=== PATIENT | female | born 1985 | race Caucasian/White ===

== ENCOUNTER → 2016-12-26 | Outpatient (CLI) | payer BC ==
[~2016-12-26] MED LIST: BCP; DXY100 PO
[2016-12-26 13:16] LABS: URINE APPEARANCE CLEAR (CLEAR); URINE BILIRUBIN NEG (NEG); URINE COLOR YELLOW; URINE NITRITE NEG (NEG); URINE PH 7.5 (4.5-7.5); URINE SPECIFIC GRAVITY 1.023 (1.000-1.030); UROBILINOGEN NEG (NEG)
[2016-12-26 13:33] LABS: MANUAL MICROSCOPIC REQUIRED? NO; REVIEW REQ? NO
== END | disposition home or self-care (01) ==
LOC: C.LABSPEC 11:08
PROVIDERS: ATTEND Obstetrics & Gynecology
DX: Z34.90 Encounter for supervision of normal pregnancy, unspecified, unspecified trimester (principal)

== ENCOUNTER → 2017-01-01 | Outpatient (CLI) | payer BC ==
[2017-01-02 15:38] LABS: CHLAMYDIA TRACH RNA*** NOT DETECTED (NOT DETECTED); GC (NEIS GONORRHOEAE)RNA** NOT DETECTED (NOT DETECTED)
== END | disposition home or self-care (01) ==
LOC: C.LABSPEC 11:18
PROVIDERS: ATTEND Obstetrics & Gynecology
DX: Z34.90 Encounter for supervision of normal pregnancy, unspecified, unspecified trimester (principal)

== ENCOUNTER → 2017-07-22 | Outpatient (CLI) | payer OTHER | END | disposition home or self-care (01) | LOC: C.PAPS 10:56 | PROVIDERS: ATTEND Obstetrics & Gynecology | DX: Z34.83 Encounter for supervision of other normal pregnancy, third trimester (principal) ==

== ENCOUNTER 2017-08-10 11:37 | Inpatient (IN) | payer OTHER ==
[~2017-08-10] VITALS: Ht 160 cm; Wt 92.0 kg
[2017-08-10] MEDS ORDERED: LACTATED RINGER'S 1000ML 1,000 ML IV PRN (12:12)
[2017-08-10] MEDS ORDERED: LACTATED RINGER'S 1000ML 500 ML IV PRN ×2 (12:13→15:34)
[2017-08-10] MEDS ORDERED: OXYTOCIN 30 UNITS/500ML NSS IV PRN ×2 (12:15→18:45)
[2017-08-10] MEDS ORDERED: BUPIVACAINE 0.25% 30 ML VIAL ONE (12:33)
[2017-08-10] MEDS ORDERED: FENTANYL CITRATE INJ 50 MCG/1 ML 2 ML VIAL ONE (12:34)
[2017-08-10] MEDS ORDERED: EpHEDrine SULFATE INJ 50 MG/ML AMP ONE (12:34)
[2017-08-10] MEDS ORDERED: FENTANYL 2MCG/ML ROPIV 1.25MG/ML 100ML BAG EPI ONE (12:35)
[2017-08-10 12:42] LABS: HEMATOCRIT 38.5 % (37-47); HEMOGLOBIN 12.9 g/dL (12.0-16.0); MEAN CELL VOLUME 85.9 fL (80-100); MEAN CORPUSCULAR HEMOGLOBIN 28.8 pg (25-34); MEAN CORPUSCULAR HGB CONC 33.5 g/dl (32-36); MEAN PLATELET VOLUME 10.9 fL (7.4-10.4); PLATELET COUNT 217 K/uL (130-400); RED CELL DISTRIBUTION WIDTH CV 13.9 % (11.5-14.5); RED CELL DISTRIBUTION WIDTH SD 42.8 fL (36.4-46.3); WHITE BLOOD COUNT 10.78 K/uL (4.8-10.8)
[2017-08-10] MEDS ORDERED: LACTATED RINGER'S 1000ML 1,000 ML IV SCH ×2 (13:00→19:00)
[2017-08-10] MEDS ORDERED: PLMIN90 INH (13:25)
[2017-08-10] MEDS ORDERED: PRENTAB26 PO (13:32)
[2017-08-10 13:36] VITALS: Ht 160 cm; Wt 92.0 kg
[2017-08-10] MEDS ORDERED: NALOXONE HCL INJ 1 MG in SODIUM CHLORIDE 0.9% 1000ML 1,000 ML IV PRN ×4 (15:34)
[2017-08-10] MEDS ORDERED: PROMETHAZINE HCL INJ 25 MG in SODIUM CHLORIDE 0.9% 50ML 50 ML IV PRN (15:45)
[2017-08-10] MEDS ORDERED: NALOXONE HCL INJ 0.4 MG/1 ML VIAL/CARP IV PRN (15:45)
[2017-08-10] MEDS ORDERED: FENTANYL 2MCG/ML ROPIV 1.25MG/ML 100ML BAG EPI PRN (15:45)
[2017-08-10] MEDS ORDERED: NALBUPHINE HCL INJ 10 MG/ML AMP IV PRN (15:45)
[2017-08-10] MEDS ORDERED: ONDANSETRON INJ 2 MG/ML 2 ML VIAL IV PRN (15:45)
[2017-08-10] MEDS ORDERED: DiphenhydrAMINE HCL 50 MG/ML VIAL IV PRN (15:45)
[2017-08-10] MEDS ORDERED: EpHEDrine SULFATE INJ 50 MG/ML AMP IV PRN (15:45)
[2017-08-10] MEDS ORDERED: DIPHTHERIA/TETANUS/PERTUSSIS 0.5 ML SYR/VIAL IM. ONE (18:45)
[2017-08-10] MEDS ORDERED: ACETAMINOPHEN 325 MG TAB PO PRN (18:45)
[2017-08-10] MEDS ORDERED: SUPERCREAM 0.870 % 15GM JAR EXT PRN (18:45)
[2017-08-10] MEDS ORDERED: LANOLIN OINT EXT PRN (18:45)
[2017-08-10] MEDS ORDERED: BENZOCAINE 20% AER SPR 82.5 GM CAN EXT PRN (18:45)
[2017-08-10] MEDS ORDERED: HYDROCORTISONE ACETATE 25 MG SUPP PR PRN (18:45)
[2017-08-10] MEDS ORDERED: OXYCODONE/ACETAMINOPHEN 5-325 TAB PO PRN (18:45)
--- NOTE | 2017-08-10 19:14 | Anesthesia Procedure Note ---
Anesthesia Epidural Removal Nt Date & Time Aug 10, 2017 at 19:13 Vital Signs Pain Intensity: 0.0 Notes Mental Status: alert / awake / arousable, participated in evaluation Nausea / Vomiting: adequately controlled Pain: adequately controlled Airway Patency, RR, SpO2: stable & adequate BP & HR: stable & adequate Hydration State: stable & adequate Neuraxial Anesthesia: was administered Anesthetic Complications: no major complications apparent, pt satisfied with anesthetic care Epidural: removed without complications, with tip intact
--- NOTE | 2017-08-10 19:25 | DELIVERY SUMMARY ---
DATE OF OPERATION: 08/10/2017 PREOPERATIVE DIAGNOSES: 1. Polk intrauterine at 39 weeks. 2. Group B strep negative. 3. Spontaneous onset of labor and rupture of membranes. POSTOPERATIVE DIAGNOSES: Same. PROCEDURE: Spontaneous vaginal delivery. SURGEON: Cindy Del Toro MD COMBINED RAIL OPERATOR: None. ESTIMATED BLOOD LOSS: 350 mL. COMPLICATIONS: None. DISPOSITION: Stable in labor and delivery. DESCRIPTION: Patricia is a 3, para 1 with a prior vaginal delivery of twins, who presented with a polk at 39 weeks gestation with spontaneous rupture of membranes and onset of labor. Her labor was augmented with Pitocin. She was provided with an epidural for pain management and ultimately she did reach complete dilation with an urge to push. I quickly prepped for delivery as she was pushing very well, and over the next several pushing effort she was able to deliver the head of her . The restituted such that the right arm was posterior and there was a compound presentation of the right arm and hand as well as a nuchal cord that was able to be reduced while the head was on the peritoneum. The remainder of the infant delivered with no difficulty whatsoever, was placed on maternal abdomen where the cord was doubly clamped and cut by the father of the baby. The placenta delivered spontaneously, was intact with a 3-vessel cord. There were no lacerations of the cervix or vagina. Small abrasion of the posterior fourchette was noted; however, patient stated that she wished for this not to be repaired unless absolutely necessary, therefore repair was deferred. At the present time, fundus is firm, lochia is minimal, and mother and are both in good condition having tolerated delivery well. I attest to the content of the Intraoperative Record and any orders documented therein. Any exceptions are noted below. MTDD
[2017-08-10] MEDS: DOCUSATE SODIUM 100 MG CAP PO SCH (20:00)
[2017-08-10 23:30] VITALS: BP 121/77; PULSE 84; TEMP 37.1
[2017-08-11] MEDS: IBUPROFEN 600 MG TAB PO PRN ×4 (01:19→21:59)
--- NOTE | 2017-08-11 01:33 | Discharge Instructions ---
Discharge Instructions Date of Service Aug 11, 2017. Admission Reason for Admission: Srom Spontaneous Rupture On Membranes Discharge Discharge Diagnosis / Problem: Vaginal delivery Discharge Goals Goal(s): Routine recovery after delivery Activity Recommendations Activity Limitations: per Instructions/Follow-up section . Instructions / Follow-Up Instructions / Follow-Up ACTIVITY RECOMMENDATIONS: * Gradual return to full activity over the next 2-3 weeks. * No lifting - nothing heavier than baby over the next 2-3 weeks. * Do not engage in vigorous exercise, sexual activity or sports until cleared by your physician. * Do not drive or operate any motorized equipment until cleared by your physician. * You may shower/bathe daily. MEDICATIONS: For discomfort or pain, you may use Acetaminophen (Tylenol), Ibuprofen (Advil), or Naproxen (Aleve) following the package directions. For constipation you may use Colace following the package directions. BREAST CARE: If you are not breast feeding: * Wear a supportive bra 24 hours a day for one to two weeks. * Avoid stimulating your breasts and nipples as much as possible during the first few weeks after delivery. * When taking a shower, have the warm water hit your back, not breasts. * When your breasts feel full, apply ice packs. Usually three to four times a day helps ease the discomfort. * Take a mild pain medication (Tylenol / Motrin) when you are uncomfortable. If breast feeding: * Use breast milk to lubricate nipples. Lansinoh cream may be used for sore nipples. You do not need to remove cream prior to breast feeding. If using a different brand of cream, check the label for directions regarding removal of cream prior to nursing. * Wear a supportive bra. * If having problems with breasts or breast feeding, call a compensation consultant or your health care provider. EPISIOTOMY CARE: After delivery, if you have an episiotomy (stitches), the following steps will ease discomfort and aid healing. * For the first 24 hours after delivery, place ice packs next to your episiotomy to help reduce swelling. * After the first 24 hour-period, sitz baths, either portable or in the tub, are suggested. A shower with a shower arm sprayed over the episiotomy may be comforting. * Aurora care should be done after each voiding and bowel movement. Squirt warm water from a plastic bottle over the perineum (region of the body between the anus and urinary opening) and pat dry. * Use Dermoplast to ease discomfort. Shake container. Dellroy directly over the episiotomy. Place a Tucks on a clean sanitary pad next to your episiotomy. SPECIAL CARE INSTRUCTIONS: When you are discharged from the hospital, it is important for you to follow the instructions listed below: * During the first week at home, you should be able to care for yourself and your baby. In addition, the usual light household activities are encouraged. * Limit your activities to the way you feel. Do not try to clean the house or move furniture. Be sensible. * If you actively engage in sports and have done so up until the time of your delivery, you may resume these activities as soon as you feel able. This may take up to one month or even longer. Use good judgment. * Continue to take your vitamins for at least six weeks after the of your baby. * Your diet need not be limited unless you were on a special diet before your delivery. Breast-feeding mothers need around 2500 calories per day and at least 64-80 ounces of fluid per day (8 to 10 glasses). * You should eat foods from the four major food groups. Crash diets or fad diets are to be avoided. Eating lean meats, fresh fruits and vegetables, low-fat dairy products, high fiber foods and a regular exercise program, will help you get back to your pre- weight without putting your health at risk. * Constipation is sometimes a problem after delivery. Take a mild laxative as needed. If breast feeding, Milk of Magnesia is acceptable to use. You may use a suppository or Fleets enema if no episiotomy. * A daily shower or tub bath is suggested. Be sure to thoroughly and gently dry the perineum. * A bloody vaginal discharge will usually continue until around four weeks post . A small amount of bleeding may continue for as long as six weeks. Vaginal discharge changes from the bright red bleeding after delivery to pink then brownish and finally yellowish-pink before becoming white and disappearing. * Bleeding may increase with activity. Your first period may come in 4-8 weeks. If you are breast feeding, your period may be delayed even longer. * Healy (sex) can begin whenever both you and your partner feel comfortable and do not have any form of genital infection. It is recommended that you wait at least six weeks for internal and external healing to occur. If you have questions, please talk to your health care practitioner. A condom should be used to prevent infection and . * Foreplay, gentle intercourse and lubrication is very important the first several times to prevent pain. A water-based lubricant such as K-Y jelly or Astroglide may be used. * If you have RH negative blood and your baby is RH positive, you will receive RHOGAM by injection prior to discharge. The nurse will give you a card to keep with you that has the date and place that you received RHOGAM after delivery. * During your care, you had a Rubella screen done to check for the presence of rubella antibodies in your blood. If your test was negative, you will receive a Rubella vaccine prior to discharge. This vaccine may cause a fever, soreness at the injection site and flu-like symptoms. If these symptoms persist, notify your health care practitioner. is not advised for one month after a Rubella vaccine. * Verbalizes understanding of car seat law as reviewed with patient nursing. * Car Seat hand-out given and reviewed with patient by nursing. * Shaken baby information reviewed with patient by nursing. Call you doctor if: * Heavy bleeding (saturating several pads an hour) or passing clots the size of your fist. * A fever >101 degrees F (38.3 degrees C) on two occasions four hours apart and /or chills. * Unusual pain in the pelvic or vaginal areas. * "Baby Blues" lasting longer than two weeks. If you have any questions or concerns, call your health care practitioner at . FOLLOW UP VISIT: * Please call the office at to schedule a 6 week examination. It is important you keep this appointment. It is important for you to make arrangements for either yearly or twice yearly check-ups thereafter. Current Hospital Diet Patient's current hospital diet: Regular OB Diet Discharge Diet Recommended Diet: Regular Diet Pending Studies Studies pending at discharge: no Medical Emergencies . Who to Call and When: Medical Emergencies: If at any time you feel your situation is an emergency, please call 911 immediately. . Non-Emergent Contact Non-Emergency issues call your: Primary Care Provider . . "Provider Documentation" section prepared by Cindy Del Toro. . VTE Core Measure Inpt VTE Proph given/why not?: Treatment not indicated
[2017-08-11 04:35] VITALS: BP 114/59; PULSE 83; TEMP 37.1
[2017-08-11 06:43] LABS: HEMATOCRIT 36.1 % (37-47)
[2017-08-11 07:40] VITALS: BP 123/85; PULSE 88; TEMP 36.9
[2017-08-11] MEDS: PRENATAL VITAMIN TAB PO SCH (08:14)
[2017-08-11] MEDS: FERROUS SULFATE 325 MG TAB PO SCH (08:14)
[2017-08-11] MEDS: DOCUSATE SODIUM 100 MG CAP PO SCH ×2 (08:14→19:52)
[2017-08-11 11:30] VITALS: BP 133/91; PULSE 83; TEMP 36.8
[2017-08-11 12:03] VITALS: BP 117/74
[2017-08-11 16:20] VITALS: BP 131/87; PULSE 65; TEMP 36.8
[2017-08-11 23:55] VITALS: BP 112/74; PULSE 67; TEMP 36.8; O2SAT 98
[2017-08-12] MEDS: IBUPROFEN 600 MG TAB PO PRN (05:44)
--- NOTE | 2017-08-12 06:50 | Progress Note ---
Subjective Aug 12, 2017. Subjective conversation w/ patient, physical exam Ambulation: ambulating normally Voiding: no voiding problems Passing Gas: Yes Diet Tolerance: Regular Diet Lochia: Moderate Feeding Type: Breast Feeding Review of Systems Constitutional: No fever, No chills Respiratory: No cough Cardiac: No chest pain Abdomen: No nausea, No vomiting Objective Vital Signs Date Time Temp Pulse Resp B/P (MAP) Pulse Ox O2 Delivery O2 Flow Rate FiO2 08/11/17 23:55 36.8 67 18 112/74 (87) 98 Room Air 08/11/17 23:55 98 Room Air 08/11/17 16:20 Room Air 08/11/17 16:20 36.8 65 16 131/87 (102) Room Air 08/11/17 12:03 117/74 (88) 08/11/17 11:30 133/91 (105) 08/11/17 11:30 36.8 83 20 08/11/17 07:40 Room Air 08/11/17 07:40 36.9 88 20 123/85 (98) Physical Exam General Appearance: WELL-APPEARING, NO APPARENT DISTRESS Respiratory/Chest: no respiratory distress, no accessory muscle use Cardiovascular: no edema Abdomen: non tender, soft Fundus: Firm Extremities: no calf tenderness Assessment and Plan Post- Day#: 2 Continue Routine Care: Desires D/C home, instructions reviewed.
[2017-08-12 07:34] VITALS: BP 126/79; PULSE 80; TEMP 36.5; O2SAT 98
[2017-08-12] MEDS: FERROUS SULFATE 325 MG TAB PO SCH (08:16)
[2017-08-12] MEDS: DOCUSATE SODIUM 100 MG CAP PO SCH (08:16)
[2017-08-12] MEDS: PRENATAL VITAMIN TAB PO SCH (08:16)
[2017-08-12] MEDS ORDERED: NURSING VERBAL MED ORDER ONE (11:45)
[2017-08-12] MEDS ORDERED: MEASLES, MUMPS & RUBELLA VIRUS VIAL SQ. ONE (11:45)
[2017-08-12 13:29] VITALS: BP_DIAS 79; PULSE 80; TEMP 36.5
== END 2017-08-12 13:31 | disposition home or self-care (01) | DRG 775 ==
LOC: C.OPB 11:37 → C.LD 11:37 → C.OPB 12:13 → C.LD 12:21 → C.OBG 21:20
PROVIDERS: ADMIT Obstetrics & Gynecology; ATTEND Obstetrics & Gynecology
PROC: 10E0XZZ Delivery of Products of Conception, External Approach (ICD-10-PCS; principal; 2017-08-10)
DX: O24.420 Gestational diabetes mellitus in childbirth, diet controlled (principal); O32.6XX0 Maternal care for compound presentation, not applicable or unspecified; O69.81X0 Labor and delivery complicated by cord around neck, without compression, not applicable or unspecified; Z3A.39 39 weeks gestation of pregnancy; Z37.0 Single live birth; Z88.2 Allergy status to sulfonamides